=== PATIENT | female | born 1960 | race Caucasian/White ===

== ENCOUNTER 2018-10-13 22:09 | Observation (INO) ==
[2018-10-13 23:14] LABS: ALB/GLOB RATIO 1.6; ALBUMIN 4.1 g/dL (3.5-5.0); CALCIUM 9.8 mg/dL (8.8-10.2); CREATININE 1.1 mg/dL (0.5-0.9); POTASSIUM 3.7 mmol/L (3.5-5.1); TOTAL BILIRUBIN 0.25 mg/dL (0.20-1.00); TOTAL PROTEIN 6.6 g/dL (6.3-8.3)
[2018-10-13 23:55] LABS: BASO# 0.03 X1000 (0.0-0.2); BASO% 0.3 % (0.0-0.8); EOS# 0.11 X1000 (0.0-0.7); EOS% 1.2 % (0.0-10.0); HEMATOCRIT 45.5 % (37.0-47.0); HEMOGLOBIN 15.5 g/dL (12.0-16.0); IMM GRAN# 0.02 X1000 (0.0-0.04); IMM GRAN% 0.2 % (0.0-0.5); LYMPH# 2.68 X1000 (1.2-3.4); LYMPH% 28.1 % (20.5-51.1); MCHC 34.1 g/dL (33-37); MCV 88.2 FL (81-99); MONO# 0.73 X1000 (0.11-0.59); MONO% 7.6 % (1.7-9.3); NEUT# 5.98 X1000 (1.4-6.5); NEUT% 62.6 % (42.2-75.2); RBC 5.16 XMIL (4.2-5.4); RDW 12.9 % (11.5-14.5); WBC 9.55 X1000 (4.8-10.8)
[2018-10-13 23:56] LABS: PLT 5 X1000 (130-400)
[2018-10-14] MEDS ORDERED: SOLU-MEDROL IV ONE (00:42)
--- NOTE | 2018-10-14 01:59 | PROVIDER DOCUMENTATION ---
This chart was entered by Marie Moncada Scribe, acting as scribe for Philippe Patel PA. HPI-General Adult - General Chief Complaint: Extremity Pain Stated Complaint: POSS BLOOD CLOT Time Seen by Provider: 10/14/18 00:00 Source: patient - History of Present Illness -Gen Adult Nature of Presenting Problems: 58 yof presents to ed with cc of left upper thigh pain since yesterday morning with sudden onset of ecchymosis, epistaxis,cheek ulcers and epistaxis. Pt family at bedside reports pt went to a doctor on October 06 and is now taking Bactrum,Flagyl,Doxy, Zanaflex, Dicylopamine. pt reports she doesn't know why she is on antibiotics. Review of Systems - Adult - REVIEW OF SYSTEMS - ADULT Constitutional: denies: chills, fever, fatique Eyes: reports: no symptoms reported Ears, Nose, Mouth & Throat: reports: other (cheek ulcers). denies: ear pain, sinus problem, throat pain Cardiovascular: denies: chest pain, irregular heart rate, orthopnea, syncope Respiratory: denies: cough, shortness of breath, wheezing Gastrointestinal: denies: abdominal pain, diarrhea, nausea, vomiting Genitourinary: denies: dysuria, discharge, frequency, flank pain, frequent UTI's , hematuria, hesitency, incontinence, urgency Musculoskeletal: denies: bone pain, back pain, joint pain, joint swelling, muscle aches, neck pain Integumentary: reports: no symptoms reported Neurological: reports: headache/migraines. denies: ataxia, dizziness/vertigo, loss of balance, numbness, paresthesia, seizure, slurred speech, syncope, tremors Psychiatric: reports: no symptoms reported Endocrine: denies: change in skin pigment, cold intolerance, polyuria Hematologic/Lymphatic: reports: easy bruising. denies: blood clots, low blood count, lymphedema, prolonged bleeding Allergic/Immunologic: reports: no symptoms reported All Other Systems: Reviewed and Negative Past History - Adult - PAST MEDICAL HISTORY-ADULT Review of Records: reports: Nursing Assessment Review, Medications Reviewed Major Childhood Illnesses: reports: denies history Cardiovascular: reports: denies history Respiratory: reports: denies history Gastrointestinal: reports: denies history Obstetrical/Gynecological: reports: denies history Genitourinary: reports: denies history Musculoskeletal: reports: denies history Neurological: reports: denies history Endocrine/Immune: reports: denies history Other Conditions: reports: denies history - IMMUNIZATION STATUS Childhood Immunizations: See Nurse Assessment Flu Vaccine: See Nurse Assessment - FAMILY HISTORY Family History: reviewed, not pertinent - SOCIAL HISTORY Smoking: non-smoker Substance Use: none/never Physical Exam-General - PHYSICAL EXAM-ADULT Initial Vital Signs Reviewed: Yes - CONSTITUTIONAL General Appearance: appears well, alert - EYES Eyes: PERRL/EOMI - HEAD, EARS, NOSE, MOUTH & THROAT HENMT: moist mucous membranes, other (small blood fluid ulcers in right cheek) - NECK Neck: non-tender, full range of motion, supple, normal inspection - RESPIRATORY Respiratory: chest non-tender, lungs clear, normal breath sounds, no pleuratic chest pain, no respiratory distress, no accessory muscle use - CARDIOVASCULAR Cardiovascular: regular rate, rhythm - GASTROINTESTINAL (ABDOMEN) Abdominal Exam: normal bowel sounds, non tender, soft - LYMPHATIC Lymphatic: no adenopathy - MUSCULOSKELETAL Back Exam: normal inspection, no CVA tenderness, no vertebral tenderness Extremity: normal range of motion, non-tender, normal gait, normal inspection, no pedal edema - SKIN Integumentary: normal color, normal turgor, warm/dry, ecchymosis (large ecchymosis on left thigh) - NEUROLOGIC Neurologic: software [employer] II-XII nml as tested, grossly normal, no motor/sensory deficits , other (very mild confusion) - PSYCHIATRIC Psych/Mental Status: normal mood/affect, normal thought content, normal thought process, oriented x 3 Progress - PLAN OF CARE/RESULTS Progress/Plan/Lab Results: Vital Signs - 8 hr 10/13/18 22:21 Temperature 97.5 F L Pulse Rate 74 Respiratory Rate 17 Blood Pressure 140/64 O2 Sat by Pulse Oximetry 100 Laboratory Results - last 24 hr 10/13/18 10/13/18 10/13/18 22:32 22:32 22:32 WBC Cancelled RBC Cancelled Hgb Cancelled Hct Cancelled MCV Cancelled MCH Cancelled MCHC Cancelled RDW Std Deviation Cancelled Plt Count Cancelled MPV Cancelled Immature Gran % (Auto) Cancelled Neut % (Auto) Cancelled Lymph % (Auto) Cancelled Dubois % (Auto) Cancelled Eos % (Auto) Cancelled Baso % (Auto) Cancelled Immature Gran # (Auto) Cancelled Neut # (Auto) Cancelled Lymph # (Auto) Cancelled Dubois # (Auto) Cancelled Eos # (Auto) Cancelled Baso # (Auto) Cancelled Corrected WBC (Man) Cancelled D-Dimer, Quantitative 0.30 Sodium 138 Potassium 3.7 Chloride 101 Carbon Dioxide 23 L Anion Gap 14 BUN 17 Creatinine 1.1 H Estimated GFR/1.73 m2 51 BUN/Creatinine Ratio 15 Glucose 120 H Calculated Osmolality 278 Calcium 9.8 Total Bilirubin 0.25 AST 41 H ALT 79 H Alkaline Phosphatase 83 Total Protein 6.6 Albumin 4.1 Globulin 2.5 Albumin/Globulin Ratio 1.6 10/13/18 23:35 WBC 9.55 RBC 5.16 Hgb 15.5 Hct 45.5 MCV 88.2 MCH 30.0 MCHC 34.1 RDW Std Deviation 12.9 Plt Count 5 L* MPV Not Reportable Immature Gran % (Auto) 0.2 Neut % (Auto) 62.6 Lymph % (Auto) 28.1 Dubois % (Auto) 7.6 Eos % (Auto) 1.2 Baso % (Auto) 0.3 Immature Gran # (Auto) 0.02 Neut # (Auto) 5.98 Lymph # (Auto) 2.68 Dubois # (Auto) 0.73 H Eos # (Auto) 0.11 Baso # (Auto) 0.03 Corrected WBC (Man) D-Dimer, Quantitative Sodium Potassium Chloride Carbon Dioxide Anion Gap BUN Creatinine Estimated GFR/1.73 m2 BUN/Creatinine Ratio Glucose Calculated Osmolality Calcium Total Bilirubin AST ALT Alkaline Phosphatase Total Protein Albumin Globulin Albumin/Globulin Ratio Orders Category Date Time Status CBC WITH ELECTRONIC DIFF [HEME] Routine Lab 10/13/18 23:35 Completed CMP [COMPREHENSIVE METABOLIC PANEL] [CHEM] Stat Lab 10/13/18 22:32 Completed D-DIMER [COAG] Stat Lab 10/13/18 22:[address] Bhakta. Result Diagrams: 10/13/18 23:35 10/13/18 22:32 - CT/MRI 1 CT Study: Head Impression: See EMR Report (NAF) - CONSULTS/PCP/HOSPITALIST Notification #1 *Consult/PCP/Hospitalist*: Dr. Woodall Time Discussed: : Consult Disposition: Admit (give 1 unit of platelets. He will follow CT scan.) Departure - Departure Date of Disposition Decision: 10/14/18 Time of Disposition Decision: : DIAGNOSIS: Thrombocytopenia Disposition: ADMITTED INPATIENT 09 Certified Medical Emergency: Emergent Condition: Serious Referrals and Follow-Ups: Nahid Holloway MD [Primary Care Provider] - - Critical Care Note This patient required my direct & personal management of CC.: Yes Total Time (mins): 38 Critical Care Statement: This patient required my direct personal management to treat or rule out processes, the absence of which, could potentiallly result in sudden, clinically significant life or limb threatening deterioration. Attestation - Physician/ LIGIA Attestation Patient care was provided by Advanced Practice Provider:: Yes Advanced Practice Provider:: Philippe Patel Advanced Practice Provider documentation review:: The Mid-level provider documentation, treatment plan and medical decision making was reviewed by the physician who agrees with all treatment and medical decision making by the MLP. The physician spent face to face time with patient:: No Advanced Practice Provider documentation review:: Supervising physician onsite and consulted in the evaluation and care of this patient. The physician did not have a face to face encounter with the patient. This chart was documented by the indicated scribe, (Marie Moncada Scribe) and accurately reflects the services I performed and decisions made by me, Philippe Patel, PA, as attested by the provider's signature.
[2018-10-14] MEDS ORDERED: ROCEPHIN 1 GM in NS 50 ML IV SCH (02:15)
[2018-10-14] MEDS ORDERED: ZOFRAN IV PRN (02:16)
[2018-10-14] MEDS ORDERED: NS 1,000 ML IV ONE (02:22)
[2018-10-14 03:02] LABS: URINE SOURCE CLEAN CATCH
[2018-10-14] MEDS ORDERED: BLISTEX MEDICATED BERRY LIP BALM TOP ONE (03:07)
[2018-10-14 03:14] LABS: BILIRUBIN URINE NEGATIVE (NEGATIVE); BLOOD URINE MODERATE (NEGATIVE); COLOR YELLOW; GLUCOSE URINE NEGATIVE (NEGATIVE); KETONE URINE NEGATIVE (NEGATIVE); LEUKOCYTES URINE NEGATIVE (NEGATIVE); NITRITE URINE NEGATIVE (NEGATIVE); PROTEIN URINE TRACE mg/dL (NEGATIVE); SP GRAVITY URINE 1.031; TURBIDITY URINE CLEAR (CLEAR); UROBILINOGEN URINE NORMAL (NORMAL)
[2018-10-14 03:16] LABS: UR EPITHELIAL CELLS <10 /HPF (<10); URINE BACTERIA NEGATIVE /HPF; URINE RBC 20-40 /HPF (<10); URINE WBC <10 /HPF (<10)
[2018-10-14 04:07] LABS: INR 0.96; PROTIME 13.6 Seconds (11.0-16.0)
[2018-10-14 04:08] LABS: PTT 25.1 Seconds (22.3-41.8)
--- NOTE | 2018-10-14 04:24 | HISTORY AND PHYSICAL ---
PRIMARY CARE PROVIDER: Nahid Holloway MD CHIEF COMPLAINT: Nosebleed, headache and hematoma on the left thigh. HISTORY OF PRESENT ILLNESS: This is a 58-year-old female with no past medical history other than a recent diagnosis of colitis and urinary tract infection. She has been taking Bactrim DS, Flagyl and NSAIDs at home. She developed ulcerations on the inside of her mouth which are blood-filled blisters. A hematoma spontaneously came up on her left thigh which is without injury which is fairly large, roughly 3-4 cm and circular. She has a nosebleed for the majority of the day and a mild headache so she came into the emergency room. Laboratory data and a CT of her head were done. The CT showed no acute intracranial process. The laboratory data was grossly normal, other than a platelet count of 5. The patient will be transfused 2 units of platelets and be admitted to the medical floor in observation status with a hematology consultation tomorrow morning. PAST MEDICAL HISTORY: Recent diagnoses of colitis and urinary tract infection, otherwise no past medical history. PAST SURGICAL HISTORY: No surgeries. HOME MEDICATIONS: Flagyl, Bactrim, NSAIDs. SOCIAL HISTORY: Lives at home with her . No tobacco, alcohol or illicit drugs. FAMILY HISTORY: Denies any family history other than a nonspecific cancer in her mother. She was unsure what type of cancer; she is . Denies any other chronic illnesses in any family members. ALLERGIES: No known drug allergies. REVIEW OF SYSTEMS: A 14-point review of systems conducted with the patient Pertinent positives listed above in the HPI. All other systems were reviewed and found to be negative. PHYSICAL EXAMINATION: VITAL SIGNS: Temperature 97.5, pulse 74, respirations 17, blood pressure 140/64, oxygen saturation 100% on room air. GENERAL: Pleasant 58-year-old female lying in the ER stretcher and answers all questions appropriately, is alert and oriented x3. She is in no acute distress. HEENT: Head is atraumatic, normocephalic. Pupils equal, round, reactive to light. Extraocular eye movement intact. Sclerae are anicteric. Conjunctivae are pink. Oral mucosa: Multiple blood- filled ulcerations noted on the right inside of her mouth. Oral mucosa is moist. NECK: Supple. No JVD. No thyromegaly. Trachea is midline. No cervical lymphadenopathy. CARDIAC: S1, S2 appreciated. No murmurs, gallops, or rubs. LUNGS: Clear to auscultation bilaterally. No rhonchi, wheezes, rales. Symmetric rise and fall with respirations. ABDOMEN: Soft, nondistended, nontender. Bowel sounds present in all 4 quadrants, normoactive. No pulsatile mass or organomegaly. EXTREMITIES: No clubbing, cyanosis, or edema. Two-plus pedal pulses bilaterally. GENITOURINARY: No bladder distention. Patient voids. Otherwise deferred. SKIN: Warm, dry and intact. Hematoma noted to left thigh with ecchymosis. NEUROLOGICAL: Alert and oriented x3. Cranial nerves II through XII grossly intact. DIAGNOSTIC DATA: CT of the head: No acute disease. LABORATORY DATA: Platelet count 5, otherwise CBC within normal limits. D-dimer 0.30. Chemistry panel within normal limits other than a creatinine of 1.1, glucose of 120. AST is 41, ALT is 79. ASSESSMENT AND PLAN: 1. Thrombocytopenia. This is of an unclear etiology. It is isolated. Patient is not anemic. She was given a dose of Solu-Medrol in the emergency room. Will give 2 units of free platelets, consult Hematology. Will check a folate, LDH, B12, order coagulation studies. It is possible that this is drug-induced as the patient was on Bactrim DS and NSAIDs. Will stop those and continue to monitor. Recheck laboratory data in the a.m. 2. Urinary tract infection. The patient has been being treated outpatient for a urinary tract infection. Will hold her current medications and start Rocephin 1 g IV q.24 hours. Recheck a urinalysis. 3. Colitis. The patient has been being treated outpatient for a colitis. Will stop her home medications other than Flagyl, continue it 500 mg IV q.6 hours. As noted above, Rocephin 1 g will be started IV q.[address] scan of her abdomen related to the colitis. She also has elevated liver enzymes. Will be able to evaluate the cause of this. 4. Transaminitis. Aware. See above. 5. Acute kidney injury. I assume this is acute, as we do not have a baseline creatinine on the patient. Will give normal saline at 100 mL/hour at this time. Patient has been on Bactrim DS which is notorious for causing kidney injury. Will stop this, recheck laboratory data. 6. Further recommendations per the patient's clinical course. Dictated by ROSELINE Cooley for Pawel Woodall MD cc: MD Juan Funk CRNP Clement Okinedo, MD
[2018-10-14] MEDS: FLAGYL 500 MG/NS 500 MG/100 ML IVPB IV SCH ×3 (04:30→13:40)
--- NOTE | 2018-10-14 05:44 | Diag Imaging Result Doc PS360 ---
EXAM: CT HEAD W/O CONTRAST HISTORY: confusion, thrombocytopenia TECHNIQUE: CT head without contrast COMPARISON: None. FINDINGS: No parenchymal hemorrhage. No epidural or subdural hematoma. No subarachnoid hemorrhage. No mass identified on this noncontrasted exam. No hydrocephalus. No sinus opacification. IMPRESSION: No hemorrhage. Negative brain CT without contrast. A preliminary report was given at 1:51 AM This exam was performed using automated exposure control, adjustment of mA or kV according to patient size, and/or use of iterative reconstruction technique. Electronically signed by Lazaro Torrez 10/14/2018 5:41 AM
--- NOTE | 2018-10-14 06:06 | HISTORY AND PHYSICAL ---
ADDENDUM: Ms. Verena Sutton is a 58-year-old female who presented to hospital because of epistaxis and headaches as well as a hematoma above the left eye. She was recently placed on antibiotics, specifically Bactrim, for treatment of colitis and also a urinary tract infection. When she presented to the hospital, she was found to have a platelet count of 5000. She did have a CT scan of the brain done which did not reveal any intracranial bleed. The patient will require a platelet transfusion and will also need to discontinue all offending drugs. Will also require a hematology evaluation. cc: Pawel Woodall MD
[2018-10-14 06:25] LABS: BASO# 0.02 X1000 (0.0-0.2); BASO% 0.3 % (0.0-0.8); EOS# 0.02 X1000 (0.0-0.7); EOS% 0.3 % (0.0-10.0); HEMATOCRIT 45.5 % (37.0-47.0); HEMOGLOBIN 15.4 g/dL (12.0-16.0); IMM GRAN# 0.02 X1000 (0.0-0.04); IMM GRAN% 0.3 % (0.0-0.5); LYMPH# 1.04 X1000 (1.2-3.4); MCH 29.9 PG (27-31); MCHC 33.8 g/dL (33-37); MCV 88.3 FL (81-99); MONO# 0.15 X1000 (0.11-0.59); MPV 11.9 FL (7.4-10.4); NEUT# 6.19 X1000 (1.4-6.5); NEUT% 83.1 % (42.2-75.2); RBC 5.15 XMIL (4.2-5.4); RDW 12.9 % (11.5-14.5); WBC 7.44 X1000 (4.8-10.8)
[2018-10-14 06:28] LABS: PLT 7 X1000 (130-400)
--- NOTE | 2018-10-14 08:53 | Diag Imaging Result Doc PS360 ---
EXAM: CT ABDOMEN/PELVIS W/O CONTRAST INDICATION: elevated LFTs, being treated for colitis TECHNIQUE: This exam was performed using automated exposure control, adjustment of mA or kV according to patient size, and/or use of iterative reconstruction technique. COMPARISON: None. FINDINGS: There is heterogeneous hepatic steatosis predominantly involving the right hepatic lobe. The liver is grossly unremarkable as imaged, otherwise. The gallbladder, spleen, pancreas, and adrenal glands are essentially unremarkable. There is a 1.5 cm left renal hypodensity most likely represents a small cyst. There are trace calcifications at its periphery. The kidneys are grossly unremarkable, otherwise. There is no hydronephrosis. The urinary bladder is nondistended and is grossly unremarkable as imaged, otherwise. The reproductive tract is grossly unremarkable by unenhanced CT. The appendix is normal. The GI tract is grossly unremarkable with no bowel wall thickening or obstruction appreciated. No focal inflammatory changes, free abdominal gas, or free fluid is identified. IMPRESSION: 1.Hepatic steatosis. 2.Other external/nonacute findings detailed above. No definite acute pathology. Electronically signed by Raghav Martinez 10/14/2018 8:51 AM
[2018-10-14 16:27] LABS: MPV 9.8 FL (7.4-10.4)
[2018-10-14 20:21] LABS: MPV 10.2 FL (7.4-10.4)
[2018-10-15 01:15] LABS: MPV 10.3 FL (7.4-10.4)
--- NOTE | 2018-10-15 01:55 | PROGRESS NOTE ---
DATE: 10/14/2018 SUBJECTIVE: This patient is not complaining of any specific symptoms at this moment. She is not complaining of chest pain, abdominal pain or headache, no dizziness. She has been transfused with 2 units of platelets and the platelet count improved from 5-63. Apparently she has been treated for colitis and urinary tract infection. We did a CT scan of the abdomen that did not show any colitis, and the urinalysis he is clean so I will stop the antibiotics, Flagyl and ceftriaxone at this moment and I will reevaluate this patient in the morning again. She used to be on Bactrim that can cause thrombocytopenia, and also on rare occasions Flagyl can cause thrombocytopenia as well. We have requested an evaluation by the Hematology/Oncology Department as well. OBJECTIVE: Vital Signs: Temperature 97.8 degrees, pulse 76, respiratory rate 19, blood pressure 123/64, oxygen saturation is 96% on room air. HEENT: Head is normocephalic. No trauma. PERRLA. She does have some multiple ulcerations on her mouth, dark and a little bit painful, it does not look like a yeast infection. Her oral mucosa is moist. Neck: Supple. No JVD. Central trachea. Chest: Clear to auscultation. No wheezing. No rales. Abdomen: Soft, nontender, and nondistended. No hepatosplenomegaly. Extremities: No edema. No clubbing. No cyanosis. She does have a hematoma on her right thigh, around 10-12 cm in diameter. Neurological: This patient is completely alert and oriented x3. No focal deficits. LABORATORY DATA: WBC 7.4, hemoglobin 15.4, hematocrit 45, platelet count 67,000, magnesium 2. LDH 262, TSH 1.21. Moderate blood in the urine and trace protein. WBC, no bacteria, no nitrates. ASSESSMENT AND PLAN: 1. Thrombocytopenia, unclear etiology, this could be related to medications. I had to stop all the antibiotics because I do not have any source of infection at this moment. CT of the abdomen is remarkable for hepatic steatosis, but no signs of colitis or infection, no abscess. Her urinalysis is clean, just a little bit of red blood cells, but no white blood cells. No bacteria. No nitrates. 2. Treated for colitis and urinary tract infection. At this moment, I will stop all the treatment with antibiotics, Bactrim and Flagyl and occasionally on rare occasions ceftriaxone can cause thrombocytopenia as well. 3. Transaminitis, aware. I am not quite sure why this patient has a mild elevation of the liver function tests, but it could be related with her hepatic steatosis. 4. Acute kidney injury. We are assuming that this is acute. I will repeat a BUN and creatinine tomorrow morning. cc: Aramis Vallejo MD
[2018-10-15 03:39] LABS: MPV 10.5 FL (7.4-10.4)
[2018-10-15 06:00] LABS: BASO# 0.04 X1000 (0.0-0.2); BASO% 0.4 % (0.0-0.8); EOS# 0.12 X1000 (0.0-0.7); EOS% 1.3 % (0.0-10.0); HEMATOCRIT 43.5 % (37.0-47.0); HEMOGLOBIN 14.3 g/dL (12.0-16.0); IMM GRAN# 0.02 X1000 (0.0-0.04); IMM GRAN% 0.2 % (0.0-0.5); LYMPH# 3.01 X1000 (1.2-3.4); LYMPH% 32.5 % (20.5-51.1); MCH 29.6 PG (27-31); MCHC 32.9 g/dL (33-37); MCV 90.1 FL (81-99); MONO# 0.96 X1000 (0.11-0.59); MONO% 10.4 % (1.7-9.3); MPV 10.8 FL (7.4-10.4); NEUT# 5.11 X1000 (1.4-6.5); NEUT% 55.2 % (42.2-75.2); PLT 57 X1000 (130-400); RBC 4.83 XMIL (4.2-5.4); RDW 13.2 % (11.5-14.5); WBC 9.26 X1000 (4.8-10.8)
[2018-10-15 06:12] LABS: AGAP 11; ALB/GLOB RATIO 1.5; ALBUMIN 3.9 g/dL (3.5-5.0); ALKALINE PHOSPHATASE 80 U/L (32-104); BUN 17 mg/dL (8-22); CALCIUM 9.1 mg/dL (8.8-10.2); CHLORIDE 107 mmol/L (98-107); COSMO 287; CREATININE 0.6 mg/dL (0.5-0.9); ESTIMATED GFR > 60; GLUCOSE 134 mg/dL (70-104); GOT 27 U/L (10-30); GPT 60 U/L (10-36); POTASSIUM 4.2 mmol/L (3.5-5.1); SODIUM 142 mmol/L (136-145); TCO2 24 mmol/L (25-35); TOTAL BILIRUBIN 0.31 mg/dL (0.20-1.00); TOTAL PROTEIN 6.5 g/dL (6.3-8.3)
--- NOTE | 2018-10-15 11:04 | HEMO/ONC CONSULTATION ---
DATE: 10/15/2018 CHIEF COMPLAINT: We are being consulted for further evaluation and management of patient's thrombocytopenia. HISTORY OF PRESENT ILLNESS: The patient presented to the emergency department on 10/14/2018 complaining of left upper thigh pain, that started yesterday. Sudden onset of ecchymosis and epistaxis. The patient was recently started on Bactrim, Flagyl, doxycycline, and Zanaflex due to a colitis and urinary tract infection. The patient says that has gotten better at this time. The patient, while in the emergency department, was found to have a platelet count of 5000 and was admitted at that time for further evaluation and management. Since being admitted, the patient has had a CT that showed no acute abnormality. Patient also had a CT of the abdomen and pelvis that showed hepatic steatosis, otherwise normal. The patient received 2 units of platelets since being admitted. The patient has not had any other signs of bleeding since being admitted. PAST MEDICAL HISTORY: The patient denies any. PAST SURGICAL HISTORY: No surgeries. HOME MEDICATIONS: Flagyl, Bactrim, and NSAIDs. SOCIAL HISTORY: Denies any tobacco, alcohol, or illicit drug use. FAMILY HISTORY: Mother had cancer. No other pertinent family history. ALLERGIES: No known drug allergies. REVIEW OF SYSTEMS: Negative other than what as mentioned in HPI. PHYSICAL EXAM: Vital Signs: Temperature 97.8 degrees, heart rate 78, respiratory rate 16, blood pressure 110/52, saturating 99% on room air. General: Patient is awake, lying in bed, in no acute distress noted. HEENT: Anicteric. Pupils PERRLA. Mucous membranes moist. Neck: Supple. Trachea midline. No JVD. Lymph node survey: No palpable lymphadenopathy. Cardiovascular: Normal S1, S2. Regular rate and rhythm. Lungs: Bilateral breath sounds clear to auscultation. Abdomen: Soft, nontender. Bowel sounds present all 4 quadrants. No hepatosplenomegaly noted. Skin: Warm, dry, and intact. Hematoma noted to the left eye with ecchymosis. No petechiae. No rashes. Neurologic: Alert and oriented x3, and no focal deficits noted. LABORATORY DATA: White blood cell count is 9.26, hemoglobin 4.3, hematocrit 43.5, platelets are 54. Potassium 4.2, BUN 17, creatinine 0.6, B12 is 921, folate is 37.4. RADIOLOGY RESULTS: Head CT normal. Abdomen an pelvis CT showed hepatic steatosis, otherwise normal. ASSESSMENT AND PLAN: 1. Thrombocytopenia: All antibiotics and medications have been stopped at this time. Platelet counts have increased since being admitted. The patient has received 2 units of platelets. Platelets are up to 54,000 at this time. Most likely this is ITP. Steroids have been ordered for today and tomorrow. Continue to monitor closely. Continue to transfuse for platelet count less than 20,000 or for any clinical signs of bleeding. 2. Urinary tract infection: The patient is being treated for a urinary tract infection as an outpatient. No signs of infection on urinalysis at this time. Urine culture at this time was showing no growth. All antibiotics have been stopped. 3. Acute kidney injury: BUN and creatinine have returned to normal. Continue recommendation by primary medical team. 4. Plan of care discussed with Dr. Gregorio. Dictated by ROSELINE Liu for Nick Gregorio MD Patient seen and examined. As above. Patient with recent history of urinary tract infection and colitis requiring antibiotics as described above. She presented with ecchymosis and epistaxis. Platelet count was noted to be 5K. She was given platelet transfusion and steroids. CT scan without splenomegaly. Findings are suggestive of ITP. Continue pulse dose Decadron. Gastric prophylaxis with PPI. Monitor CBC daily. Nick Gregorio M.D. cc: ROSELINE Liu MD [facility]
--- NOTE | 2018-10-15 13:47 | PROGRESS NOTE ---
DATE: 10/15/2018 SUBJECTIVE: This patient seems to be more stable today. No symptoms. She does have multiple hematomas in different parts of the body, but there is just one that is large located on her left thigh; not worse compared with yesterday. OBJECTIVE: Vital Signs: Temperature 97.5, pulse 95, respiratory rate 16, blood pressure 113/83. Oxygen saturation 97% on room air. HEENT: Head normocephalic. No trauma. PERRLA. Neck: Supple. No JVD. Central trachea. She does have some mild ulcers inside her mouth; it looks better compared with yesterday and no pain. Neck supple. No JVD. Central trachea. Chest clear to auscultation. No wheezing or rales. Abdomen is soft, nontender, nondistended. No hepatosplenomegaly. Extremities: No edema. No clubbing. No cyanosis. She did have some hematoma in some part of the extremities. There is a large one measuring around 10 cm of diameter but is about the same compared with yesterday. Neurologic: The patient is alert and oriented x3. No focal deficits. LABORATORY: WBC 9.2, hemoglobin 14.3, hematocrit 43.5, platelets 54,000. Sodium 142, potassium 4.2, chloride 107 bicarbonate 24. BUN 17, creatinine 0.6, glucose 134. Calcium 9.1. ASSESSMENT AND PLAN: 1. Thrombocytopenia. Hematology/Oncology evaluated this patient and the possibilities are idiopathic thrombocytopenic purpura and/or medications, but it looks like idiopathic thrombocytopenic purpura can be the cause of these problem. CT of the abdomen is remarkable for hepatic steatosis. No sign of colitis or infection. No abscess. Her urine is clean; just a little bit of red blood cells; no white blood cells; no bacteria; no nitrate. I have stopped all the antibiotics. She has been placed on steroids by Hematology/Oncology Department. Will monitor. 2. Treated for colitis and urinary tract infection. At this time, I have already stopped all the antibiotic treatment. She is not having symptoms. 3. Transaminitis, aware. AST is normal today. Alkaline phosphatase normal and ALT decreased from 79 to 60. Probably, this is related to her hepatic steatosis. 4. Acute kidney injury, resolved. cc: Aramis Vallejo MD
[2018-10-15] MEDS: DECADRON 40 MG in NS 50 ML IV SCH (15:01)
[2018-10-15] MEDS ORDERED: TYLENOL PO PRN (22:58)
[2018-10-16 06:56] LABS: BASO# 0.01 X1000 (0.0-0.2); BASO% 0.1 % (0.0-0.8); HEMATOCRIT 46.4 % (37.0-47.0); HEMOGLOBIN 15.5 g/dL (12.0-16.0); IMM GRAN# 0.03 X1000 (0.0-0.04); IMM GRAN% 0.2 % (0.0-0.5); LYMPH# 1.37 X1000 (1.2-3.4); LYMPH% 10.5 % (20.5-51.1); MCH 29.7 PG (27-31); MCHC 33.4 g/dL (33-37); MCV 88.9 FL (81-99); MONO# 0.29 X1000 (0.11-0.59); MONO% 2.2 % (1.7-9.3); MPV 10.7 FL (7.4-10.4); NEUT# 11.41 X1000 (1.4-6.5); PLT 105 X1000 (130-400); RBC 5.22 XMIL (4.2-5.4); RDW 12.6 % (11.5-14.5); WBC 13.11 X1000 (4.8-10.8)
[2018-10-16 07:05] LABS: HEMOGLOBIN A1C 6.3 % (4.8-6.0)
[2018-10-16 07:21] LABS: AGAP 14; BUN 16 mg/dL (8-22); CALCIUM 10.1 mg/dL (8.8-10.2); CHLORIDE 100 mmol/L (98-107); COSMO 283; CREATININE 0.6 mg/dL (0.5-0.9); ESTIMATED GFR > 60; GLUCOSE 245 mg/dL (70-104); POTASSIUM 4.3 mmol/L (3.5-5.1); SODIUM 137 mmol/L (136-145); TCO2 23 mmol/L (25-35)
[2018-10-16 07:44] LABS: LYMPHS 6 % (21-51); MONO 8 % (1-9); SEGS 86 % (42-75)
--- NOTE | 2018-10-16 09:17 | HEMO/ONC PROGRESS NOTE ---
DATE: 10/16/2018 SUBJECTIVE: Patient continues to feel well at this time. The patient denies any complaints at this time. OBJECTIVE: Vital Signs: Temperature 97.6 degrees, heart rate 79, respiratory rate 16, blood pressure is 137/63, satting 97% on room air. General: Patient is awake, lying in bed, no acute distress noted. HEENT: Anicteric pupils, PERRLA. Mucosa appears to be moist. Cardiovascular: S1 and S2. Regular rate and rhythm. Chest: Bilateral breath sounds clear to auscultation. Abdomen: Soft, nontender. Bowel sounds present in all 4 quadrants. Neurologic: Alert and oriented x3. No focal deficits noted. LABORATORY DATA: White blood cell count is 13.1, hemoglobin 15.5, hematocrit 46.4, platelets are 105. Potassium 4.3. BUN 16 and creatinine 0.6. ASSESSMENT/PLAN: 1. Thrombocytopenia looks like to be idiopathic thrombocytopenic purpura at this time. The patient has responded very well to her steroids. Platelet count today is up to 105,000. The patient received a second dose of steroids today. We will continue to monitor closely. May transfuse platelets for any signs of bleeding or for platelet counts less than 20,000. Will continue to monitor closely. 2. Acute kidney injury: BUN and creatinine continued to be normal. Continue recommendations per primary medical team. 3. Deep vein thrombosis prophylaxis. Continue to have patient get up out of bed as much as possible. Patient can be discharged to follow up in clinic on Thursday. Dictated by ROSELINE Liu for Nick Gregorio MD cc: ROSELINE Liu MD [facility]
[2018-10-16] MEDS: DECADRON 40 MG in NS 50 ML IV SCH (09:27)
[2018-10-16 11:45] VITALS: BP 132/71
--- NOTE | 2018-10-16 19:46 | DISCHARGE SUMMARY ---
ADMISSION DATE: 10/13/2018 DISCHARGE DATE: 10/16/2018 DISCHARGE DIAGNOSES: 1. Severe thrombocytopenia, likely idiopathic thrombocytopenia purpura (ITP). 2. Recently treated for colitis and urinary tract infection. 3. Transaminitis. 4. Acute kidney injury, resolved. HOSPITAL COURSE: A 58-year-old female with no past medical history other than recent diagnosis with colitis and urinary tract infection. Apparently, she has been taking Bactrim DS, Flagyl, and NSAIDs at home. She was admitted on 10/14/2018. As per family members also, she has been recently diagnosed of mild dementia. She was brought to the emergency department because she developed ulcerations on the inside of her mouth, which are blood-filled blisters and a spontaneous hematoma on her left thigh which is without injury and is large, probably 6 to 7 cm and , She had a nosebleed for the majority of the day and a mild headache. When she came into the emergency room, CT scan of the head was done and was negative. Laboratory showed a platelet count of 5; this patient was transfused immediately with 2 units of platelets. She received also steroids by the emergency department. She was placed on antibiotics cefepime and metronidazole. An abdomen and pelvis CT scan was performed and showed hepatic steatosis and some other nonacute findings. This patient is asymptomatic. She is not complaining of abdominal pain or burning sensation with urination. Urinalysis did not show any abnormality other than a little bit of blood, red blood cells, but no white blood cells, no bacteria, and no nitrate. I stopped all the antibiotics after all those results. A stool culture did not show any pathogen. C difficile toxin is negative. Urine culture is negative as well. Initially we thought that probably this thrombocytopenia was related with her treatment with antibiotics. Then was evaluated by Hematology/Oncology Department. They provided more steroids IV, and the next day, the platelet count increased to 105. We do believe this is related to ITP in this context, rather than antibiotics. The patient was re-evaluated by Hematology/Oncology Department again today. Her WBC increased as well as her blood sugar due to the steroids. No fever, no chills, vital signs are stable. She will be discharged. She was tolerating p.o. She was ambulating without any problems. She basically was with no symptoms. She will receive Decadron 4 mg p.o. daily and Prilosec 40 mg p.o. daily as an outpatient that have been recommended by Hematology/Oncology Department. She will go to Dr. Gregorio's office next 10/18/2018, in the morning to get a new CBC done to check again on her platelet count. DISCHARGE CONDITION: At the moment of discharge, this patient was in a stable medical condition. DISCHARGE PHYSICAL EXAMINATION: Vital signs: Temperature 98.1 degrees, pulse 84, respiratory rate 16, blood pressure 132/71, oxygen saturation 97% on room air. HEENT: Head normocephalic. No trauma. PERRLA. Neck: Supple. No JVD. No masses. Central trachea. Chest: Clear to auscultation. No wheezing. No rales. Abdomen: Soft, nontender, nondistended. No hepatosplenomegaly. Extremities: No edema. No clubbing. No cyanosis. She does have some hematomas. Some of them are small, and there is 1 large hematoma on her left thigh with no changes. Neurological: The patient is alert and oriented x3. She is answering all my questions. LABORATORY DATA: WBC 13.1, hemoglobin 15.5, hematocrit 46.4, platelet count 105 ,000. Sodium 137, potassium 4.3, chloride 100, bicarbonate 23, BUN 16, creatinine 0.6, glucose 245. Hemoglobin A1c 6.3. Calcium 10.1. DISCHARGE MEDICATIONS: 1. Decadron 4 mg p.o. daily. 2. Prilosec 40 mg p.o. daily. FOLLOW-UP: Follow up with Dr. Gregorio next 10/18/2018, to get a new CBC. COORDINATION TIME: Time discharging this patient 35 minutes. cc: Aramis Vallejo MD [facility]
== END 2018-10-16 12:53 | disposition home or self-care (01) ==
LOC: ED 22:09 → EDIPHOLD 22:09 → SUATTDRO 10-14 03:22 → 4N 10-14 17:57
PROVIDERS: ATTEND Internal Medicine
CPT/HCPCS: 36415; 36430; 70450; 74176; 80048; 80053; 81001; 82607; 82746; 83036; 83615; 83735; 84443; 85025; 85049; 85379; 85610; 85730; 86850; 86900; 86901; 87045; 87046; 87088; 87324; 96361; 96365; 96366; 96367; 96375; 99285; 99291; A9270; J0696; J2930; J7030; P9035; S0030